=== PATIENT | male | born 1945 | race Caucasian/White ===

== ENCOUNTER 2024-03-09 08:32 | Emergency (ER) | payer MEDICARE, BC ==
[2024-03-09] MEDS ORDERED: Dexamethasone 4 mg/ml Vial ONE (09:01)
== END 2024-03-09 09:20 | disposition home or self-care (01) ==
LOC: NAV ERS 08:32
DX: L23.7 Allergic contact dermatitis due to plants, except food (principal); E10.9 Type 1 diabetes mellitus without complications; I10 Essential (primary) hypertension; E78.00 Pure hypercholesterolemia, unspecified; Z79.899 Other long term (current) drug therapy; Z79.82 Long term (current) use of aspirin
CPT/HCPCS: 96372; 99283; J1100